=== PATIENT | male | born 1955 | race African-American/Black ===

== ENCOUNTER 2022-03-16 19:33 | Emergency (ER) | payer MEDICARE, OTHER ==
[~2022-03-16] VITALS: Ht 175.3 cm; Wt 82.0 kg
[2022-03-16 19:36] VITALS: BP 169/104
== END 2022-03-16 22:03 | disposition left against medical advice (07) ==
LOC: ER 19:33
DX: R55 Syncope and collapse (principal); I10 Essential (primary) hypertension; R00.0 Tachycardia, unspecified
CPT/HCPCS: 93005; 99283